=== PATIENT | male | born 1965 | race Caucasian/White ===

== ENCOUNTER 2022-04-05 07:39 | Outpatient (REF) | payer OTHER, SELFPAY ==
--- NOTE | ~2022-04-05 | XR_ITS ---
EXAMINATION: XR KNEE STANDING BILATERAL XR KNEES RIGHT, 2 VIEWS CLINICAL INFORMATION: Right knee pain COMPARISON: None TECHNIQUE: Standing AP view of bilateral knees. Lateral and patellar views of the right kidney. FINDINGS: Mild narrowing of the bilateral medial knee joint spaces associated subarticular sclerosis. Lateral knee joint spaces are well preserved. Normal osseous mineralization. No evidence of acute fracture or dislocation. No evidence of suprapatellar joint effusion. No dystrophic soft tissue calcifications. XR/XR knee standing BI IMPRESSION: Mild narrowing of the bilateral medial knee joint spaces. No acute osseous abnormality.
--- NOTE | ~2022-04-05 | XR_ITS ---
EXAMINATION: XR KNEE STANDING BILATERAL XR KNEES RIGHT, 2 VIEWS CLINICAL INFORMATION: Right knee pain COMPARISON: None TECHNIQUE: Standing AP view of bilateral knees. Lateral and patellar views of the right kidney. FINDINGS: Mild narrowing of the bilateral medial knee joint spaces associated subarticular sclerosis. Lateral knee joint spaces are well preserved. Normal osseous mineralization. No evidence of acute fracture or dislocation. No evidence of suprapatellar joint effusion. No dystrophic soft tissue calcifications. XR/XR knee RT 2V IMPRESSION: Mild narrowing of the bilateral medial knee joint spaces. No acute osseous abnormality.
== END 2022-04-05 07:40 | disposition home or self-care (01) ==
LOC: HO.HOSX 07:39
PROVIDERS: Visit Provider Physician Assistant
DX: M25.561 Pain in right knee (principal); M25.562 Pain in left knee
CPT/HCPCS: 73560; 73565

== ENCOUNTER 2022-04-19 15:57 | Outpatient (REF) | payer OTHER, SELFPAY ==
--- NOTE | ~2022-04-19 | MR_ITS ---
EXAMINATION: MR KNEE WITHOUT CONTRAST, RIGHT CLINICAL INFORMATION: Right knee pain. COMPARISON: Radiographs 04/05/2022. TECHNIQUE: MRI of the knee without contrast was performed using routine sequences on a high-field scanner. FINDINGS: MENISCI: Medial Meniscus: There is an inner margin radial tear which may be full-thickness at the junction of the posterior horn and body. Lateral Meniscus: Intact LIGAMENTS: Cruciate: Intact Collateral: Intact EXTENSOR MECHANISM: Intact ARTICULAR CARTILAGE/BONE: Patellofemoral Compartment: Normal Medial Compartment: Mild narrowing with subchondral marrow edema of the peripheral tibia medially. Lateral Compartment: Articular cartilage defect. There is a intraosseous ganglion/degenerative cyst within the tibia, likely extending from the tibiofibular joint. JOINT FLUID AND BURSAE: Trace joint effusion/Rebollar's cyst. MR/MR knee RT wo con IMPRESSION: Radial tear of the medial meniscus at the junction of the posterior horn and body. 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
== END 2022-04-19 15:58 | disposition home or self-care (01) ==
LOC: HO.MRI 15:57
PROVIDERS: Visit Provider Physician Assistant
DX: S83.8X1A Sprain of other specified parts of right knee, initial encounter (principal); M17.11 Unilateral primary osteoarthritis, right knee
CPT/HCPCS: 73721